=== PATIENT | male | born 1955 | race Caucasian/White ===

== ENCOUNTER 2022-05-03 17:15 | Emergency (ER) | payer OTHER ==
[2022-05-03 19:03] VITALS: BP 175/96; PULSE 80
[2022-05-04] MEDS ORDERED: Silver Sulfadiazine 1% Crm 20 GM Tube TOP ONE (09:40)
== END 2022-05-03 18:40 | disposition home or self-care (01) ==
LOC: LB.ED 17:15
DX: T22.211A Burn of second degree of right forearm, initial encounter (principal); T22.212A Burn of second degree of left forearm, initial encounter; I10 Essential (primary) hypertension; Z88.0 Allergy status to penicillin; X19.XXXA Contact with other heat and hot substances, initial encounter
CPT/HCPCS: 16020; 99283